=== PATIENT | female | born 1990 | race Caucasian/White ===

== ENCOUNTER → 2018-05-27 04:40 | Observation (INO) ==
--- NOTE | 2018-06-06 21:56 | OB Labor Progress Note ---
Date of Encounter: 05/27/18 Time of Encounter: 04:30 Labor Progress Note - Subjective Subjective: Pt brought by squad/police dept to L&D b/c as she was being arrested she claimed that she was having heavy bleeding and was in labor. She was brought to Labor and delivery where I determined that this was innacurate and a guise being put on by pt to hopefully avoid arrest. I performed exam and u/s and determined pt was not having any bleeding and she was not with u/s showing small uterus with thin ES. She was immediately released back into custody of [facility]. - Heart Tones Heart Tones: NA - Plan Plan: discharged to police department
== END | disposition home or self-care (01) ==
LOC: 1NENULAB
PROVIDERS: ADMIT Obstetrics & Gynecology; ATTEND Obstetrics & Gynecology